=== PATIENT | male | born 1960 | race Hispanic/Latino ===

== ENCOUNTER 2017-01-29 23:15 | Emergency (ER) | payer MEDICARE, MEDICAID, OTHER ==
[2017-01-29] MEDS ORDERED: Albuterol-Ipratrop 3 mg / 0.5 (3 ml) UD INH STA (23:51)
--- NOTE | 2017-01-30 00:05 | ED PDOC ---
HPI: General Adult Time Seen by Provider: 01/29/17 23:33 Chief Complaint (Nursing): Shortness Of Breath Chief Complaint (Provider): Wheezing History Per: Patient Additional Complaint(s): Pt. states for the past 2 weeks he's had worsening chest tightness and wheezing. Pt. states he does have a hx of emphysema and has been using his albuterol pump with minimal relief. Pt. admits to continuing to smoke despite being advised by his PMD to stop. Denies fever, trauma, hemoptysis, leg pain, hx of DVT/PE, palpitations. Past Medical History Reviewed: Historical Data, Nursing Documentation, Vital Signs Vital Signs: Last Vital Signs Temp 98.0 F 01/29/17 23:17 Pulse 95 H 01/29/17 23:17 Resp 18 01/30/17 00:38 BP 133/89 01/29/17 23:17 Pulse Ox 96 01/30/17 00:38 - Medical History PMH: Bipolar Disorder, COPD, Depression, Emphysema, Hyperthyroidism, Hypothyroidism Denies: Diabetes, Hepatitis, HIV, HTN, Seizures, Sexually Transmitted Disease - Family History Family History: States: No Known Family Hx - Home Medications Home Medications: Ambulatory Orders Medication Instructions Recorded Gabapentin [Neurontin] 600 mg PO TID 02/18/16 Lamotrigine [Lamictal] 100 mg PO DAILY 02/18/16 Levothyroxine [Synthroid] 112 mg PO DAILY 02/18/16 Venlafaxine HCl [Effexor Xr] 75 mg PO DAILY 02/18/16 fluPHENAZine [Prolixin] 10 mg PO DAILY 02/18/16 Lamotrigine [Lamictal Odt] 100 mg MM DAILY #5 odt 04/09/16 Venlafaxine [Effexor XR] 150 mg PO DAILY #5 tab 04/10/16 Albuterol 0.083% [Albuterol 3 ml IH Q4 PRN #30 neb 01/30/17 Sulfate 3 Ml] Albuterol HFA [Ventolin HFA 90 2 puff IH [id number] PRN #60 puff 01/30/17 mcg/actuation (8 g)] Methylprednisolone [Medrol Dose 4 mg PO DAILY #21 mg 01/30/17 Pack (21 tabs)] Nebulizer [Aeroeclipse] 1 each MC Q4 PRN #50 each 01/30/17 - Allergies Allergies/Adverse Reactions: Allergies Allergy/AdvReac Type Severity Reaction Status Date / Time No Known Allergies Allergy Verified 04/09/16 19:06 Review of Systems ROS Statement: Except As Marked, All Systems Reviewed And Found Negative Respiratory: Positive for: Cough, Wheezing Physical Exam - Reviewed Nursing Documentation Reviewed: Yes Vital Signs Reviewed: Yes - Physical Exam Appears: Positive for: Well, Non-toxic, No Acute Distress Head Exam: Positive for: ATRAUMATIC, NORMAL INSPECTION, NORMOCEPHALIC Skin: Positive for: Normal Color, Warm. Negative for: Rash Eye Exam: Positive for: EOMI, Normal appearance, PERRL ENT: Positive for: Normal ENT Inspection Neck: Positive for: Normal, Painless ROM Cardiovascular/Chest: Positive for: Regular Rate, Rhythm Respiratory: Positive for: Normal Breath Sounds, Wheezing (b/l). Negative for: Decreased Breath Sounds, Accessory Muscle Use, Crackles, Rales, Rhonchi, Respiratory Distress Gastrointestinal/Abdominal: Positive for: Normal Exam, Soft. Negative for: Tenderness Back: Positive for: Normal Inspection. Negative for: L CVA Tenderness, R CVA Tenderness Extremity: Positive for: Normal ROM Neurologic/Psych: Positive for: Alert, Oriented - Laboratory Results Result Diagrams: 01/29/17 00:01 01/29/17 00:01 - ECG ECG: Positive for: Interpreted By Me ECG Rhythm: Positive for: Sinus Rhythm. Negative for: ST/T Changes O2 Sat by Pulse Oximetry: 96 - Radiology X-Ray: Interpreted by In (CXR) X-Ray Interpretation: No Acute Disease - Progress ED Course And Treament: Labs ordered. DuoNeb x 3, solu-medrol 125mg IV, CXR ordered. Re-evaluation Time: 03:30 (Lungs clear b/l. Reports good relief of wheezing. ) Condition: Re-examined, Improved Disposition - Clinical Impression Clinical Impression: COPD exacerbation - Patient ED Disposition Is Patient to be Admitted: No - Disposition Referrals: [facility] [Outside] Disposition: Routine/Home Disposition Time: 03:30 Condition: IMPROVED Prescriptions: Albuterol HFA [Ventolin HFA 90 mcg/actuation (8 g)] 2 puff IH [id number] PRN #60 puff PRN Reason: Wheezing Nebulizer [Aeroeclipse] 1 each MC Q4 PRN #50 each PRN Reason: Wheezing Albuterol 0.083% [Albuterol Sulfate 3 Ml] 3 ml IH Q4 PRN #30 neb PRN Reason: Wheezing Methylprednisolone [Medrol Dose Pack (21 tabs)] 4 mg PO DAILY #21 mg Instructions: COPD (Chronic Obstructive Pulmonary Disease) (ED), How to Stop Smoking (ED)
[2017-01-30 00:17] LABS: BASO # 0.1 K/uL (0.0-0.2); BASO % 1.1 % (0.0-2.0); EOS # 0.3 K/uL (0.0-0.7); EOS % 3.4 % (0.0-4.0); LYMPH # 2.3 K/uL (1.0-4.3); LYMPH % 22.7 % (20.0-40.0); MEAN CELL VOLUME 90.1 fl (80.0-94.0); MEAN CORPUSCULAR HEMOGLOBIN 30.2 pg (27.0-31.0); MEAN CORPUSCULAR HGB CONC 33.5 g/dL (33.0-37.0); MEAN PLATELET VOLUME 8.9 fl (7.2-11.7); MONO # 1.2 K/uL (0.0-0.8); MONO % 11.8 % (0.0-10.0); NEUT # 6.3 K/uL (1.8-7.0); RED CELL DISTRIBUTION WIDTH 13.1 % (11.5-14.5); WHITE BLOOD COUNT 10.3 K/uL (4.8-10.8)
[2017-01-30 00:26] LABS: ALB/GLOB RATIO 1.1 (1.0-2.1); ALKALINE PHOSPHATASE 102 U/L (38-126); ALT/SGPT 26 U/L (21-72); AST/SGOT 21 U/L (17-59); BILIRUBIN,TOTAL 0.6 mg/dl (0.2-1.3); BLOOD UREA NITROGEN 12 mg/dl (9-20); CALCIUM 9.2 mg/dL (8.4-10.2); CARBON DIOXIDE 24 mmol/L (22-30); CHLORIDE 105 mmol/L (98-107); GFR AFRICAN-AMERICAN > 60; GLUCOSE,RANDOM 87 mg/dL (75-110); POTASSIUM 4.1 MMOL/L (3.6-5.0); SODIUM 144 mmol/l (132-148); TOTAL PROTEIN 7.8 G/DL (6.3-8.2)
[2017-01-30] MEDS ORDERED: Albuterol-Ipratrop 3 mg / 0.5 (3 ml) UD ONE (00:28)
[2017-01-30 06:40] VITALS: BP 130/73; PULSE 96; RESP 17; TEMP 98; O2SAT 99
--- NOTE | 2017-01-30 07:33 | CARD ---
APPROVED REPORT EKG Measurement Heart [id number] <Conclusion> Normal sinus rhythm Possible Left atrial enlargement Borderline ECG
--- NOTE | 2017-01-30 09:04 | RAD ---
HISTORY: Wheezing. COMPARISON: 02/18/2016. TECHNIQUE: Chest PA and lateral FINDINGS: LUNGS: No active pulmonary disease. PLEURA: No significant pleural effusion identified. No pneumothorax apparent. CARDIOVASCULAR: No radiographic findings to suggest acute or significant cardiovascular disease. OSSEOUS STRUCTURES: No significant abnormalities. VISUALIZED UPPER ABDOMEN: Normal. OTHER FINDINGS: None. IMPRESSION: No active disease. No significant interval change compared to the prior examination(s).
== END 2017-01-30 06:42 | disposition home or self-care (01) ==
LOC: H.ER 23:15
DX: J44.1 Chronic obstructive pulmonary disease with (acute) exacerbation (principal); E03.9 Hypothyroidism, unspecified; E05.90 Thyrotoxicosis, unspecified without thyrotoxic crisis or storm; F31.9 Bipolar disorder, unspecified; R06.2 Wheezing
CPT/HCPCS: 71020; 80053; 84443; 84484; 85025; 93005; 94640; 96374; 99283; J2930

== ENCOUNTER 2017-03-13 20:53 | Emergency (ER) | payer MEDICARE, OTHER ==
[2017-03-13 21:30] VITALS: BP 126/86; PULSE 70; RESP 17; TEMP 98.2; O2SAT 97
--- NOTE | 2017-03-13 22:29 | ED PDOC ---
HPI: Psych/Substance Abuse Time Seen by Provider: 03/13/17 21:20 Chief Complaint (Nursing): Psychiatric Evaluation Chief Complaint (Provider): Pt reports feeling depressed for a week History Per: Patient History/Exam Limitations: no limitations Onset/Duration Of Symptoms: Days Current Symptoms Are (Timing): Still Present Associated Symptoms: Depression, Suicidal Thoughts (Fleeting and without plan ) Past Medical History Reviewed: Historical Data, Nursing Documentation, Vital Signs Vital Signs: Last Vital Signs Temp 98.2 F 03/13/17 21:27 Pulse 70 03/13/17 21:27 Resp 17 03/13/17 21:27 BP 126/86 03/13/17 21:27 Pulse Ox 97 03/13/17 21:27 - Medical History PMH: Bipolar Disorder, COPD, Depression, Emphysema, Hyperthyroidism, Hypothyroidism Denies: Diabetes, Hepatitis, HIV, HTN, Seizures, Sexually Transmitted Disease - Surgical History Surgical History: No Surg Hx - Family History Family History: States: Unknown Family Hx - Living Arrangements Living Arrangements: With Family - Social History Current smoker - smoking cessation education provided: No Alcohol: None Drugs: Denies - Home Medications Home Medications: Ambulatory Orders Medication Instructions Recorded Gabapentin [Neurontin] 600 mg PO TID 02/18/16 Lamotrigine [Lamictal] 100 mg PO DAILY 02/18/16 Levothyroxine [Synthroid] 112 mg PO DAILY 02/18/16 Venlafaxine HCl [Effexor Xr] 75 mg PO DAILY 02/18/16 fluPHENAZine [Prolixin] 10 mg PO DAILY 02/18/16 Lamotrigine [Lamictal Odt] 100 mg MM DAILY #5 odt 04/09/16 Venlafaxine [Effexor XR] 150 mg PO DAILY #5 tab 04/10/16 Albuterol 0.083% [Albuterol 3 ml IH Q4 PRN #30 neb 01/30/17 Sulfate 3 Ml] Albuterol HFA [Ventolin HFA 90 2 puff IH [id number] PRN #60 puff 01/30/17 mcg/actuation (8 g)] Methylprednisolone [Medrol Dose 4 mg PO DAILY #21 mg 01/30/17 Pack (21 tabs)] Nebulizer [Aeroeclipse] 1 each MC Q4 PRN #50 each 01/30/17 - Allergies Allergies/Adverse Reactions: Allergies Allergy/AdvReac Type Severity Reaction Status Date / Time No Known Allergies Allergy Verified 03/13/17 21:30 Review of Systems ROS Statement: Except As Marked, All Systems Reviewed And Found Negative Psych: Positive for: Depression Physical Exam - Reviewed Nursing Documentation Reviewed: Yes Vital Signs Reviewed: Yes - Physical Exam Appears: Positive for: Well, Non-toxic, No Acute Distress Head Exam: Positive for: ATRAUMATIC, NORMAL INSPECTION, NORMOCEPHALIC Skin: Positive for: Normal Color, Warm, DRY Eye Exam: Positive for: Normal appearance ENT: Positive for: Normal ENT Inspection Neck: Positive for: Normal, Painless ROM Cardiovascular/Chest: Positive for: Regular Rate, Rhythm Respiratory: Positive for: CNT, Normal Breath Sounds Gastrointestinal/Abdominal: Positive for: Normal Exam, Bowel Sounds, Soft Back: Positive for: Normal Inspection Extremity: Positive for: Normal ROM Neurologic/Psych: Positive for: Alert, Oriented - ECG O2 Sat by Pulse Oximetry: 97 Medical Decision Making Medical Decision Making: Crisis evaluation completed. Disposition - Clinical Impression Clinical Impression: Bipolar 1 disorder - Patient ED Disposition Is Patient to be Admitted: No Counseled Patient/Family Regarding: Diagnosis, Need For Followup - Disposition Referrals: [facility] [Outside] [facility] [Outside] Disposition: Routine/Home Disposition Time: 22:29 Condition: GOOD Instructions: Bipolar Disorder (ED)
== END 2017-03-13 23:06 | disposition home or self-care (01) ==
LOC: H.ER 20:53
DX: F31.9 Bipolar disorder, unspecified (principal); E03.9 Hypothyroidism, unspecified; E05.90 Thyrotoxicosis, unspecified without thyrotoxic crisis or storm; J44.9 Chronic obstructive pulmonary disease, unspecified

== ENCOUNTER 2018-01-22 15:27 | Emergency (ER) | payer MEDICARE, MEDICAID ==
[2018-01-22 15:33] VITALS: O2SAT 98
[2018-01-22] MEDS ORDERED: Albuterol-Ipratrop 3 mg / 0.5 (3 ml) UD IH STA (15:38)
--- NOTE | 2018-01-22 15:47 | ED PDOC ---
HPI: Psych/Substance Abuse Time Seen by Provider: 01/22/18 15:33 Chief Complaint (Nursing): Alcohol Ingestion Chief Complaint (Provider): Depression, suicidal ideation History Per: Patient History/Exam Limitations: no limitations Onset/Duration Of Symptoms: Days Current Symptoms Are (Timing): Still Present Modifying Factor(s): Alcohol Additional Complaint(s): 57yo male with history of COPD, depression, bipolar disorder, presents to ED for evaluation as he has been having suicidal thought. Patient sates he has been depressed and admits to alcohol use; states today he does not have any suicidal plans. Patient also complains of mild shortness of breath, and wheezing. He denies any chest pain, weakness, and offers no other complaints. Past Medical History Reviewed: Historical Data, Nursing Documentation, Vital Signs Vital Signs: Last Vital Signs Temp 98 F 01/22/18 15:30 Pulse 76 01/22/18 15:30 Resp 20 01/22/18 15:30 BP Pulse Ox 98 01/22/18 15:30 - Medical History PMH: Bipolar Disorder, COPD, Depression, Emphysema, Hyperthyroidism, Hypothyroidism Denies: Diabetes, Hepatitis, HIV, HTN, Seizures, Sexually Transmitted Disease - Surgical History Surgical History: No Surg Hx - Family History Family History: States: Unknown Family Hx - Home Medications Home Medications: Ambulatory Orders Medication Instructions Recorded Gabapentin [Neurontin] 600 mg PO TID 02/18/16 Lamotrigine [Lamictal] 100 mg PO DAILY 02/18/16 Levothyroxine [Synthroid] 112 mg PO DAILY 02/18/16 Venlafaxine HCl [Effexor Xr] 75 mg PO DAILY 02/18/16 fluPHENAZine [Prolixin] 10 mg PO DAILY 02/18/16 Lamotrigine [Lamictal Odt] 100 mg MM DAILY #5 odt 04/09/16 Venlafaxine [Effexor XR] 150 mg PO DAILY #5 tab 04/10/16 Albuterol 0.083% [Albuterol 3 ml IH Q4 PRN #30 neb 01/30/17 Sulfate 3 Ml] Albuterol HFA [Ventolin HFA 90 2 puff IH [id number] PRN #60 puff 01/30/17 mcg/actuation (8 g)] Methylprednisolone [Medrol Dose 4 mg PO DAILY #21 mg 01/30/17 Pack (21 tabs)] Nebulizer [Aeroeclipse] 1 each MC Q4 PRN #50 each 01/30/17 - Allergies Allergies/Adverse Reactions: Allergies Allergy/AdvReac Type Severity Reaction Status Date / Time No Known Allergies Allergy Verified 01/21/18 19:52 Review of Systems ROS Statement: Except As Marked, All Systems Reviewed And Found Negative Cardiovascular: Negative for: Chest Pain Respiratory: Positive for: Shortness of Breath, Wheezing Psych: Positive for: Suicidal ideation (no plan) Physical Exam - Reviewed Nursing Documentation Reviewed: Yes Vital Signs Reviewed: Yes - Physical Exam Appears: Positive for: Non-toxic, No Acute Distress Head Exam: Positive for: ATRAUMATIC, NORMAL INSPECTION, NORMOCEPHALIC Skin: Positive for: Normal Color Eye Exam: Positive for: Normal appearance Neck: Positive for: Supple Cardiovascular/Chest: Positive for: Regular Rate, Rhythm Respiratory: Positive for: Rhonchi (scattered), Wheezing (mild expiratory wheeze ). Negative for: Respiratory Distress Gastrointestinal/Abdominal: Positive for: Normal Exam, Soft. Negative for: Tenderness Extremity: Positive for: Normal ROM. Negative for: Pedal Edema, Deformity, Swelling Neurologic/Psych: Positive for: Alert, Oriented. Negative for: Motor/Sensory Deficits - Laboratory Results Result Diagrams: 01/22/18 16:00 01/22/18 16:00 - ECG O2 Sat by Pulse Oximetry: 98 (RA) Pulse Ox Interpretation: Normal Medical Decision Making Medical Decision Making: Impression: COPD exacerbation, suicidal ideation Plan: -- Labs -- EKG -- Duoneb 3ml INH Scribe Attestation: Documented by Gela Garzon acting as a scribe for Rober De Los Santos MD. Provider Attestation: All medical record entries made by the Scribe were at my direction and personally dictated by me. I have reviewed the chart and agree that the record accurately reflects my personal performance of the history, physical exam, medical decision making, and the department course for this patient. I have also personally directed, reviewed, and agree with the discharge instructions and disposition. Disposition - Clinical Impression Clinical Impression: Alcohol use, Alcohol abuse, Bipolar disorder - Patient ED Disposition Is Patient to be Admitted: Transfer of Care - Disposition Disposition: Transfer of Care Disposition Time: 17:00 Condition: FAIR Instructions: Alcohol Intoxication (ED), Abuse of Alcohol (ED), Alcohol Dependence (ED) Forms: [employer] (Italian) Patient Signed Over To: Nasra Camarena
[2018-01-22 16:14] LABS: BASO # 0.1 K/uL (0.0-0.2); BASO % 0.6 % (0.0-2.0); EOS # 0.3 K/uL (0.0-0.7); HEMOGLOBIN 12.2 g/dL (12.0-18.0); LYMPH % 31.4 % (20.0-40.0); MEAN CELL VOLUME 92.4 fl (80.0-94.0); MEAN CORPUSCULAR HGB CONC 33.5 g/dL (33.0-37.0); MEAN PLATELET VOLUME 8.7 fl (7.2-11.7); MONO # 0.9 K/uL (0.0-0.8); MONO % 9.4 % (0.0-10.0); NEUT # 5.4 K/uL (1.8-7.0); NEUT % 55.6 % (50.0-75.0); NRBC % 0.1 % (0.0-0.0); RBC 3.93 Mil/uL (4.40-5.90); RED CELL DISTRIBUTION WIDTH 13.5 % (11.5-14.5); WHITE BLOOD COUNT 9.6 K/uL (4.8-10.8)
[2018-01-22] MEDS ORDERED: Albuterol-Ipratrop 3 mg / 0.5 (3 ml) UD ONE (16:18)
[2018-01-22 16:32] VITALS: RESP 19
[2018-01-22 16:34] LABS: CALCIUM 8.5 mg/dL (8.4-10.2)
--- NOTE | 2018-01-22 16:40 | RAD ---
HISTORY: cpd COMPARISON: 01/30/2017 TECHNIQUE: Chest PA and lateral FINDINGS: LUNGS: Hyperinflation, manifestations of COPD. No active pulmonary disease. Chronic interstitial lung disease. PLEURA: No significant pleural effusion identified. No pneumothorax apparent. CARDIOVASCULAR: Normal. OSSEOUS STRUCTURES: No significant abnormalities. VISUALIZED UPPER ABDOMEN: Normal. OTHER FINDINGS: None. IMPRESSION: No active disease. No significant interval change compared to the prior examination(s).
[2018-01-22 16:42] LABS: ALBUMIN 3.8 g/dL (3.5-5.0)
--- NOTE | 2018-01-22 17:45 | ED PDOC ---
- Laboratory Results Result Diagrams: 01/22/18 16:00 01/22/18 16:00 - ECG O2 Sat by Pulse Oximetry: 98 (RA) Pulse Ox Interpretation: Normal Medical Decision Making Medical Decision Making: Time: 1699 Patient signed out to me by Dr. De Los Santos pending crisis evaluation, disposition. Time: 1912 Patient seen and evaluated by crisis team, and detox resources provided to patient. Patient is stable for discharge home. Scribe Attestation: Documented by Gela Garzon acting as a scribe for Nasra Camarena MD. Provider Attestation: All medical record entries made by the Scribe were at my direction and personally dictated by me. I have reviewed the chart and agree that the record accurately reflects my personal performance of the history, physical exam, medical decision making, and the department course for this patient. I have also personally directed, reviewed, and agree with the discharge instructions and disposition. Disposition - Clinical Impression Clinical Impression: Alcohol use, Alcohol abuse, Bipolar disorder - POA Present On Arrival: None - Disposition Referrals: [facility] Anonymous [Outside] Disposition: Routine/Home Disposition Time: 19:15 Condition: GOOD Instructions: Alcohol Intoxication (ED), Abuse of Alcohol (ED), Alcohol Dependence (ED) Forms: [employer] (German)
[2018-01-22 19:24] VITALS: BP 128/78; PULSE 78; TEMP 97
--- NOTE | 2018-01-23 07:33 | CARD ---
APPROVED REPORT EKG Measurement Heart [id number] <Conclusion> Normal sinus rhythm Normal ECG
== END 2018-01-22 19:24 | disposition home or self-care (01) ==
LOC: H.ER 15:27
DX: F10.10 Alcohol abuse, uncomplicated (principal); F31.9 Bipolar disorder, unspecified; E03.9 Hypothyroidism, unspecified; E05.90 Thyrotoxicosis, unspecified without thyrotoxic crisis or storm; J44.1 Chronic obstructive pulmonary disease with (acute) exacerbation
CPT/HCPCS: 71046; 80053; 85025; 93005; 94640; 99282; G0480

== ENCOUNTER 2018-05-02 09:44 | Inpatient (IN) | payer MEDICAID, MEDICARE, OTHER ==
[2018-05-02 09:50] VITALS: BMI 24.3
[2018-05-02 11:52] LABS: ALB/GLOB RATIO 1.3 (1.0-2.1); ALBUMIN 3.8 g/dL (3.5-5.0); ALT/SGPT 31 U/L (21-72); AST/SGOT 24 U/L (17-59); BLOOD UREA NITROGEN 10 mg/dl (9-20); GFR AFRICAN-AMERICAN > 60; GFR NON-AFRICAN AMERICAN 52
[2018-05-02 11:54] LABS: BARBITURATES, UR NEGATIVE (NEGATIVE); BENZODIAZEPINES, UR NEGATIVE (NEGATIVE); OPIATES, UR NEGATIVE (NEGATIVE); PHENCYCLIDINE, UR NEGATIVE (NEGATIVE)
--- NOTE | 2018-05-02 12:10 | ED PDOC ---
HPI: General Adult Time Seen by Provider: 05/02/18 10:37 Chief Complaint (Nursing): Med Refill Chief Complaint (Provider): Med Refill History Per: Patient History/Exam Limitations: no limitations Additional Complaint(s): 57 years old male with history of alcohol abuse, hypertension and bipolar disorder presents to the ED for a refill of his bipolar medication. Patient offers no medical concerns at this time. PMD: non provided Past Medical History Vital Signs: Last Vital Signs Temp 98.5 F 05/02/18 09:50 Pulse 93 H 05/02/18 09:50 Resp 16 05/02/18 09:50 BP 110/77 05/02/18 09:50 Pulse Ox 97 05/02/18 14:28 - Medical History PMH: Asthma, Bipolar Disorder, COPD, Depression, Emphysema, Hypercholesterolemia , Hyperthyroidism, Hypothyroidism Denies: Diabetes, Hepatitis, HIV, HTN, Seizures, Sexually Transmitted Disease - Surgical History Surgical History: No Surg Hx - Family History Family History: States: Unknown Family Hx - Social History Current smoker - smoking cessation education provided: Yes (cigarettes) Alcohol: None (Patient reports he has been clean of alcohol for couple of months ) Drugs: Denies - Home Medications Home Medications: Ambulatory Orders Medication Instructions Recorded Gabapentin 600 mg PO HS 04/30/18 Lamotrigine [Lamictal] 200 mg PO DAILY 04/30/18 Levothyroxine [Synthroid] 125 mcg PO DAILY 04/30/18 Venlafaxine HCl [Venlafaxine HCl 150 mg PO DAILY 04/30/18 ER] - Allergies Allergies/Adverse Reactions: Allergies Allergy/AdvReac Type Severity Reaction Status Date / Time No Known Allergies Allergy Verified 05/02/18 10:02 Review of Systems ROS Statement: Except As Marked, All Systems Reviewed And Found Negative Physical Exam - Reviewed Nursing Documentation Reviewed: Yes Vital Signs Reviewed: Yes - Physical Exam Appears: Positive for: Non-toxic, No Acute Distress Head Exam: Positive for: ATRAUMATIC, NORMOCEPHALIC Skin: Positive for: Normal Color, Warm, Dry Eye Exam: Positive for: Normal appearance, EOMI, PERRL ENT: Positive for: Normal ENT Inspection Neck: Positive for: Normal, Painless ROM, Supple Cardiovascular/Chest: Positive for: Regular Rate, Rhythm. Negative for: Murmur Respiratory: Positive for: Normal Breath Sounds. Negative for: Respiratory Distress Gastrointestinal/Abdominal: Positive for: Normal Exam, Soft. Negative for: Tenderness Back: Positive for: Normal Inspection Extremity: Positive for: Normal ROM. Negative for: Tenderness Neurologic/Psych: Positive for: Alert, Oriented - Laboratory Results Result Diagrams: 05/02/18 11:30 05/02/18 11:30 - ECG O2 Sat by Pulse Oximetry: 97 (RA) Pulse Ox Interpretation: Normal Medical Decision Making Medical Decision Making: Time: 1130 Initial Plan: --CBC Patient is referred to crisis evaluation awaiting for results. 1417 Patient sign in medically clear. Patient is diagnosed by Dr. Pinto with bipolar disorder. 1437 Chest X-Ray FINDINGS: LUNGS: The lungs are well inflated and clear. PLEURA: No significant pleural effusion identified, no pneumothorax apparent. CARDIOVASCULAR: Normal. OSSEOUS STRUCTURES: No significant abnormalities. VISUALIZED UPPER ABDOMEN: Normal. OTHER FINDINGS: None. IMPRESSION: No active pulmonary disease. ----- Scribe Attestation: Documented by Tati Pérez, acting as a scribe for Yesenia Sena MD. Provider Scribe Attestation: All medical record entries made by the Scribe were at my direction and personally dictated by me. I have reviewed the chart and agree that the record accurately reflects my personal performance of the history, physical exam, medical decision making, and the department course for this patient. I have also personally directed, reviewed, and agree with the discharge instructions and disposition. Disposition - Clinical Impression Clinical Impression: Bipolar disorder - Disposition Condition: IMPROVED
[2018-05-02 12:15] LABS: BASO % 0.6 % (0.0-2.0); EOS # 0.3 K/uL (0.0-0.7); EOS % 4.7 % (0.0-4.0); HEMOGLOBIN 12.1 g/dL (12.0-18.0); LYMPH # 2.1 K/uL (1.0-4.3); LYMPH % 30.6 % (20.0-40.0); MEAN CELL VOLUME 89.3 fl (80.0-94.0); MEAN CORPUSCULAR HGB CONC 34.7 g/dL (33.0-37.0); MEAN PLATELET VOLUME 8.4 fl (7.2-11.7); MONO # 0.8 K/uL (0.0-0.8); MONO % 11.8 % (0.0-10.0); NEUT # 3.6 K/uL (1.8-7.0); NEUT % 52.3 % (50.0-75.0); NRBC % 0.1 % (0.0-0.0); RBC 3.91 Mil/uL (4.40-5.90); RED CELL DISTRIBUTION WIDTH 12.6 % (11.5-14.5); WHITE BLOOD COUNT 6.9 K/uL (4.8-10.8)
--- NOTE | 2018-05-02 14:38 | RAD ---
Date of service: 05/02/2018 HISTORY: admission COMPARISON: 01/22/2018. FINDINGS: LUNGS: The lungs are well inflated and clear. PLEURA: No significant pleural effusion identified, no pneumothorax apparent. CARDIOVASCULAR: Normal. OSSEOUS STRUCTURES: No significant abnormalities. VISUALIZED UPPER ABDOMEN: Normal. OTHER FINDINGS: None. IMPRESSION: No active pulmonary disease.
[2018-05-02 15:10] LABS: URINE BILIRUBIN NEGATIVE (NEGATIVE); URINE BLOOD NEGATIVE (NEGATIVE); URINE CLARITY CLEAR (Clear); URINE COLOR YELLOW (YELLOW); URINE GLUCOSE (UA) NEG (Normal); URINE LEUKOCYTE ESTERASE NEG Leu/uL (Negative); URINE PROTEIN NEGATIVE (NEGATIVE); URINE UROBILINOGEN 0.2-1.0 mg/dL (0.2-1.0)
[2018-05-02 16:07] VITALS: O2SAT 98
[2018-05-02] MEDS ORDERED: Magnesium Hydroxide Susp 30 ml UD PO PRN (17:02)
[2018-05-02] MEDS ORDERED: DiphenhydrAMINE 50 mg/ml Inj IM PRN (17:02)
[2018-05-02] MEDS ORDERED: Alum-Mag Hydrox-Simethicone Susp (30 mL) PO PRN (17:02)
--- NOTE | 2018-05-02 17:38 | PCM.BM ---
Treatment Plan Problems - Problems identified on initial assessmt Problem 1 Date Initiated: 05/02/18 Time Initiated: 17:36 Assessment reference: NA Status: Active Priority: 1 Agitated/Aggressive Date Initiated: 05/02/18 Time Initiated: 17:37 Assessment reference: NA Treatment assets and liabiliti Patient Assests: self-reliant, ADL independent Patient Liabilities: financial problems, poor support system, substance abuse, medical problems, other
[2018-05-02 18:19] LABS: HDL CHOLESTEROL 33 MG/DL (30-70)
[2018-05-02 18:30] LABS: LDL CHOLESTEROL 44 mg/dL (0-129)
[2018-05-02 18:47] VITALS: RESP 18; TEMP 97.5
[2018-05-03] MEDS ORDERED: Levothyroxine 125 MCG TAB PO SCH (06:30)
[2018-05-03 09:17] LABS: T4 8.45 ug/dl (5.5-11.0)
[2018-05-03 09:37] VITALS: BP 152/85; PULSE 68
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
[2018-05-03] MEDS ORDERED: Venlafaxine 150 mg ER Cap PO STA (12:16)
--- NOTE | 2018-05-03 12:34 | CARD ---
APPROVED REPORT Date of service: 05/02/2018 EKG Measurement Heart [id number] <Conclusion> Normal sinus rhythm Nonspecific T wave abnormality Abnormal ECG
[2018-05-03] MEDS ORDERED: Albuterol HFA 90 mcg/actuation (8 g) INH PRN (14:25)
--- NOTE | 2018-05-03 14:29 | CP.PCM.CON ---
History of Present Illness - History of Present Illness History of Present Illness: Patient was seen but was very nasty and refused further interview and examination. Past Patient History - Infectious Disease Hx of Infectious Diseases: None - Past Social History Alcohol: None (Patient reports he has been clean of alcohol for couple of months ) Drugs: Denies - CARDIAC Hx Cardiac Disorders: Yes Other/Comment: pt refused to ans - PULMONARY Hx Respiratory Disorders: Yes Hx Emphysema: Yes - NEUROLOGICAL Hx Seizures: No Other/Comment: refused to ans - HEENT Hx HEENT Problems: No - RENAL Hx Chronic Kidney Disease: No - ENDOCRINE/METABOLIC Hx Endocrine Disorders: Yes Hx Hypothyroidism: Yes Other/Comment: pt refused to elaborate - HEMATOLOGICAL/ONCOLOGICAL Hx Blood Disorders: No Hx Human Immunodeficiency Virus (HIV): No - INTEGUMENTARY Hx Dermatological Problems: No - MUSCULOSKELETAL/RHEUMATOLOGICAL Hx Musculoskeletal Disorders: No - GASTROINTESTINAL Hx Gastrointestinal Disorders: No - GENITOURINARY/GYNECOLOGICAL Hx Genitourinary Disorders: No Hx Sexually Transmitted Disorders: No - PSYCHIATRIC Hx Substance Use: Yes (many years) - SURGICAL HISTORY Hx Surgeries: No - ANESTHESIA Hx Anesthesia: No Meds Allergies/Adverse Reactions: Allergies Allergy/AdvReac Type Severity Reaction Status Date / Time No Known Allergies Allergy Verified 05/02/18 10:02 - Medications Medications: Current Medications Acetaminophen (Tylenol 325mg Tab) 650 mg PO Q4 PRN PRN Reason: pain Al Hydrox/Mg Hydrox/Simethicone (Maalox Plus 30 Ml) 30 ml PO Q4 PRN PRN Reason: Dyspepsia Albuterol (Ventolin Hfa 90 Mcg/Actuation (8 G)) 2 puff INH Q6 PRN PRN Reason: Wheezing Diphenhydramine HCl (Benadryl) 50 mg IM Q6 PRN PRN Reason: Extrapyramidal S/S Unable PO Diphenhydramine HCl (Benadryl) 50 mg PO Q6 PRN PRN Reason: Extrapyramidal Symptoms Diphenhydramine HCl (Benadryl) 50 mg PO HS PRN PRN Reason: Sleep Fluphenazine HCl (Prolixin) 10 mg PO HS GARRETT Last Admin: 05/02/18 21:16 Dose: 10 mg Haloperidol (Haldol) 5 mg PO Q4 PRN PRN Reason: Agitation Haloperidol Lactate (Haldol) 5 mg IM Q4 PRN PRN Reason: Agitation, Unable to Take PO Levothyroxine Sodium (Synthroid) 125 mcg PO DAILY@0630 GARRETT Last Admin: 05/03/18 06:41 Dose: 125 mcg Lorazepam (Ativan) 2 mg IM Q4 PRN PRN Reason: Anxiety/Agitation,Unable PO Lorazepam (Ativan) 1 mg PO Q8 PRN PRN Reason: Anxiety Last Admin: 05/03/18 10:35 Dose: 1 mg Magnesium Hydroxide (Milk Of Magnesia) 30 ml PO HS PRN PRN Reason: Constipation Results - Vital Signs Recent Vital Signs: Last Vital Signs Temp 97.5 F L 05/02/18 18:46 Pulse 68 05/03/18 09:00 Resp 18 05/03/18 09:00 BP 152/85 H 05/03/18 09:00 Pulse Ox 98 05/02/18 16:07 - Labs Result Diagrams: 05/02/18 11:30 05/02/18 11:30 Labs: Laboratory Results - last 24 hr 05/02/18 05/02/18 05/02/18 14:56 18:09 18:09 Hemoglobin A1c 6.0 Triglycerides 195 H Cholesterol 111 LDL Cholesterol Direct 44 HDL Cholesterol 33 Thyroxine (T4) TSH 3rd Generation Urine Color Yellow Urine Clarity Clear Urine pH 6.0 Ur Specific [place] < 1.005 Urine Protein Negative Urine Glucose (UA) Neg Urine Ketones Negative Urine Blood Negative Urine Nitrate Negative Urine Bilirubin Negative Urine Urobilinogen 0.2-1.0 Ur Leukocyte Esterase Neg Urine Microscopic WBC < 1 05/03/18 05/03/18 07:15 07:15 Hemoglobin A1c 5.9 Triglycerides Cholesterol LDL Cholesterol Direct HDL Cholesterol Thyroxine (T4) 8.45 TSH 3rd Generation 0.22 L Urine Color Urine Clarity Urine pH Ur Specific [place] Urine Protein Urine Glucose (UA) Urine Ketones Urine Blood Urine Nitrate Urine Bilirubin Urine Urobilinogen Ur Leukocyte Esterase Urine Microscopic WBC
--- NOTE | 2018-05-03 15:22 | PCM.PYCHDC ---
Mental Status Examination - Mental Status Examination Orientation: Person, Place, Situation Memory: Intact Mood: Neutral Affect: Constricted Speech: Appropriate Attention: WNL Concentration: WNL Association: WNL Fund of Knowledge: WNL Formal Thought Process: Circumstantial Description of patient's judgement and insight: partial insight poor judgment Psychotic Thoughts and Behaviors: pt denied perceptual disturbances, non elicited Suicidal Ideation: No Current Homicidal Ideation?: No Discharge Summary - Discharge Note Reason for Hospitalization: pt requested help pt is 57ys old male with previous psychiatric diagnosis of alcohol abuse and schizoaffective disorder as per pt since 1979, pt presented to ER requesting to be placed on his medications, pt reported he recently moved to [place] from [place], accordingly he was unable to continue on his medications, became increasingly agitated edgy labile , pt also started experiencing suicidal ideation In the Er pt was uncooperative, angry. agitated , verbally assaultive to staff on evaluation pt reported that he has hard time to control his temper, and that he has vague homicidal ideation, not targeted towards any body in particular but he is experiencing poor impulse control Laboratory Data: Abnormal Lab Results 05/02/18 05/02/18 05/03/18 18:09 18:09 07:15 Hemoglobin A1c 6.0 Triglycerides 195 H Cholesterol 111 LDL Cholesterol Direct 44 HDL Cholesterol 33 Thyroxine (T4) 8.45 TSH 3rd Generation 0.22 L 05/03/18 07:15 Hemoglobin A1c 5.9 Triglycerides Cholesterol LDL Cholesterol Direct HDL Cholesterol Thyroxine (T4) TSH 3rd Generation Consultations:: List each consultation separately and include: 1. Reason for request. 2. Findings. 3. Follow-up Summary of Hospital Course include:: 1. Description of specific treatment plan utilized for patients during their course of treatmen. 2. Summarize the time- course for resolution of acute symptoms and/or regressed behaviors. 3. Describe issues identified and worked on during hospitalization. 4. Describe medication utilized. 5. Describe medical problems identified and treated. 6. Reassessment of suicide risk Summary of Hospital Course: pt ion admission was started on prolixin lamictal and effexor. 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
== END 2018-05-03 16:20 | disposition left against medical advice (07) | DRG 885 ==
LOC: H.ER 09:44 → H.ERHOLD 14:15 → H.PSYCH 16:51
PROVIDERS: ADMIT Psychiatry & Neurology Psychiatry; ATTEND Psychiatry & Neurology Psychiatry
DX: F25.9 Schizoaffective disorder, unspecified (principal); R45.851 Suicidal ideations; J43.9 Emphysema, unspecified; R45.850 Homicidal ideations; E03.9 Hypothyroidism, unspecified; I10 Essential (primary) hypertension; E78.00 Pure hypercholesterolemia, unspecified; F17.210 Nicotine dependence, cigarettes, uncomplicated